=== PATIENT | female | born 1970 | race Caucasian/White ===

== ENCOUNTER 2024-08-30 08:26 | Outpatient (AMB) | payer BC, SELFPAY ==
--- NOTE | 2024-08-30 08:30 | MHC.PC.OV ---
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 Required: No Is last menstrual period known: Yes Last menstrual period: 08/09/24 Post menopausal: No Patient : No Allergies No Known Allergies Allergy (Verified 08/30/24 08:56) Medication List - Last Reconciled 08/30/24 by Sonam Cassidy CNP No Known Home Meds Tobacco use date assessed: 08/30/24 Dental Screening Dental Screen Date: 08/30/24 Did you have a dental visit in the last 12 months?: No Did you have a dental problem in the last 6 months where you did not have access to dental care?: No Was dental information given to patient?: Yes HPI HPI Comments History of Present Illness Details 54-year-old female presents to establish care Prior PCP? - [facility]/Rafat Henning Last office visit/CPE/labs - 2019 Acute issue(s) - Anxiety and Depression. Notes that her symptoms are mild and generally well controlled. Increased anxiety and depressive symptoms usually coincide with her menstrual cycle. She was on psychotropic medications until 4 years ago. She has history of therapist and psychiatrist over 30 years ago; not currently followed by both. She is not interested in starting psychotropic medication at this time. Past Medical History - RA - Anxiety - Depression Surgical History - None Family History - Dad: AUD - Mom: Depression - MGM: Depression Social History - Nonsmoker. Does not vape. Drinks 2-3 beers/wine monthly. Denies recreational drug use - Has been making healthy dietary choices. Walks routinely. Generally sleep well Health maintenance - Last eye exam was about 10 years ago. Referred to Ophthalmology routine eye care - Last dental visit was about 8 years ago; encouraged to schedule an appointment with his dentist for routine dental care. - Last tetanus vaccine was in 2002; received Tdap vaccine today - Has not been vaccinated for the flu this season; declines vaccination - She has never been vaccinated for shingles or pneumonia. Encouraged to get vaccinated for both vaccines. She may get the vaccines from the local pharmacy - Last pap smear test was 5 years ago. Referred to [facility] beater engineer for a pap smear test - She has never had a mammogram. Mammogram ordered - She has never had a colonoscopy. Referred to [facility] gastroenterology for a colonoscopy [facility] Medical History (Updated 08/30/24 @ 09:26 by Sonam Cassidy CNP) Arthritis Depression Anxiety Family History (Updated 08/30/24 @ 08:47 by Pari Josue) Father Alcohol abuse Mother FH: mental illness High blood pressure High cholesterol Thyroid disorder Maternal Grandmother FH: mental illness High blood pressure High cholesterol Thyroid disorder Sister FH: mental illness Maternal Grandfather High cholesterol Cardiovascular disease Paternal Grandfather Alcohol abuse Social History Housing: House Patient Tobacco Use Status: Never used Tobacco e-Cigarette/Vaping Use: Never Used Second Hand Smoke Exposure: Yes service: No Current occupational status: employed 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 1. Little interest or pleasure in doing things: several days 2. Feeling down, depressed, or hopeless: several days 3. Trouble falling or staying asleep, or sleeping too much: not at all 4. Feeling tired or having little energy: not at all 5. Poor appetite or overeating: not at all 6. Feeling bad about yourself - or that you are a failure or have let yourself or your family down: not at all 7. Trouble concentrating on things, such as reading the newspaper or watching television: not at all 8. Moving or speaking so slowly that other people could have noticed. Or the opposite - being so fidgety or restless that you have been moving around a lot more than usual: not at all 9. Thoughts that you would be better off or of hurting yourself in some way: not at all Total score: 2 Depression Screening Interpretation: Negative Depression Screening Done: Yes [id number] - PHQ-9 Billing: Yes Source: Developed by Drs. Chay Sarmiento, Opal Elizondo, Deep Gonzalez and colleagues, with an educational franc from [employer]. Thrive Questionnaire Date Thrive assessed: 08/30/24 I am a: Patient What is your living situation today?: I have a steady place to live Within the past 12 months, did the food you bought not last and you didn't have the money to get more?: Never true Within the past 12 months, did you worry whether your food would run out before you got money to buy more?: Never true Do you have trouble paying for medicines?: No Do you have trouble getting transportation to medical appointments?: No Do you have trouble paying your heating and electricity bill?: No Do you have trouble taking care of your child, family member or friend?: No Do you have trouble with day-to-day activities such as bathing, preparing meals, shopping, managing finances, etc.?: No Are you currently unemployed and looking for a job?: No Are you interested in more education?: I choose not to answer this question Please select the resources that you would like help with: None Currently or been in a relationship where the following occur: No concerns reported THRIVE Score: 0 AUDIT C Alcohol Use Questionnaire (AUDIT-C) 1. How often do you have a drink containing alcohol?: 2-4 times a month 2. How many drinks containing alcohol do you have on a typical day when you are drinking?: 1 or 2 3. How often do you have six or more drinks on one occasion?: Less than monthly Total Score: 3 Score Reviewed/Action Taken: Yes REINA-7 AMB Questionnaire REINA-7 Date REINA - 7 assessed: 08/30/24 Feeling nervous, anxious, or on edge: 3 = Nearly every day Not being able to stop or control worryin = Several days Worrying too much about different things: 2 = More than half the days Trouble relaxin = More than half the days Being so restless that it is hard to sit still: 1 = Several days Becoming easily annoyed or irritable: 3 = Nearly every day Feeling afraid as if something awful might happen: 1 = Several days Total REINA-7 score (0-4 normal; 5-9 mild; 10-14 moderate; 15-21 severe): 13 Source: Developed by Drs. Chay Sarmiento, Deep Lui and colleagues, with an educational franc from [employer]. REINA-7 Assessment Billing REINA-7 Assessment Tool: REINA-7 Assessment 24728 Review of Systems Const Details: Denies chills, Denies fatigue, Denies fever(s), Denies headache(s) and Denies weakness HEENT Denies change in vision, Denies dizziness, Denies headache(s), Denies hearing loss, Denies nasal congestion, Denies sinus pain, Denies sinus pressure and Denies sore throat Card Denies chest pain, Denies lightheadedness, Denies dyspnea and Denies other (palpitations) Resp Denies cough, Denies dyspnea and Denies wheezing GI Denies abdominal pain, Denies melena, Denies hematochezia, Denies change in bowel habits, Denies dyspepsia and Denies nausea Denies hematuria and Denies dysuria Musc Denies abnormal gait, Denies myalgias, Denies arthralgias, Denies numbness and Denies tingling Skin/Breast Denies rash, Denies unusual bruising and Denies wounds Neuro Denies abnormal gait, Denies dizziness, Denies headache(s), Denies memory loss, Denies numbness, Denies Sensory deficit (Neuro), Denies tingling and Denies weakness Psych Denies anxiety, Denies depression and Denies memory loss Endo Denies cold intolerance, Denies fatigue, Denies heat intolerance, Denies polydipsia and Denies polyuria Paulino/Lymph Denies easy bleeding and Denies easy bruising Aller/Immun Denies wheezing Physical exam (Primary Care) Vital Signs: Last Vital Signs Temp 98.1 F 08/30/24 08:38 Pulse 95 08/30/24 08:38 Resp 16 08/30/24 08:38 BP 136/86 08/30/24 09:09 Pulse Ox 98 08/30/24 08:38 Oxygen Delivery Method Room Air 08/30/24 08:38 BMI result Body Mass Index 39.1 Tobacco/Smoking Status: Tobacco use Status Tobacco use date assessed 08/30/24 08/30/24 08:38 Patient Tobacco Use Status Never used Tobacco 08/30/24 08:38 e-Cigarette/Vaping Use Never Used 08/30/24 08:38 PHQ-9: PHQ-9 Score PHQ-9: Total score 2 08/30/24 08:42 Depression Screening Interpretation: Negative Thrive Assessment: Date of Thrive Assessment Date Thrive assessed 08/30/24 08/30/24 08:34 Currently or been in a relationship where the following occur: No concerns reported Const Other: General: no acute distress, well developed, alert and awake Nutritional Appearance: well nourished Orientation/consciousness: patient oriented x3 [facility] Head: Yes normocephalic and Yes atraumatic Ears: hearing grossly normal bilaterally and TM's normal bilaterally General nose exam: Normal external nose present and Normal nares present Mouth: Normal oral and palatal mucosa present and moist mucous membranes Teeth and gingiva: dentition normal Throat: Yes oropharynx normal Eyes Pupils: Equal, round and reactive pupils present and Pupil accommodation reflex normal EOM: EOMs intact bilaterally Neck Neck: Yes normal visual inspection, Yes no lymphadenopathy and Yes trachea midline Thyroid: Thyroid normal Carotids: no bruits Lymphatic: no lymphadenopathy noted Chest Chest palpation & inspection: normal inspection of the chest Resp Effort & Inspection: normal respiratory effort Auscultation: clear to auscultation bilaterally Cardio Rate: regular rate Rhythm: regular rhythm Heart sounds: S1 normal heart sound present, S2 normal heart sound present, no gallops, no murmurs and no rubs Bruits: no abdominal aortic bruits and no carotid bruits GI Palpation (GI): No Abdominal aortic bruit present, Soft to palpation, nontender, No hepatosplenomegaly present and No Rebound tenderness present Auscultation: normal bowel sounds General: Yes no CVA tenderness Back/Spine/Pelvis Back: no CVA tenderness Cervical Spine: cervical ROM normal and No Cervical spine tenderness Thoracic/Lumbar Spine: thoraco-lumbar ROM normal, No pain with thoraco-lumbar ROM, No thoracic spinal tenderness and No lumbar spinal tenderness Skin General: warm and dry. Normal skin color. Normal skin turgor Lesions: no lesions Rashes: no rashes Trauma: no lacerations or abrasions Wounds: no wounds Nails: normal Neuro General: patient oriented x3, gait normal and CN's II-XI intact bilaterally Cranial nerves: Yes Equal, round and reactive pupils present Cognition (Neuro): normal cognition Gait exam (Neuro): Normal gait present Motor exam (neuro): 5/5 motor strength present throughout Sensory Exam: No Sensory deficit (Neuro) Deep tendon reflexes (DTR's): Right patellar reflex intensity grade: 2+ and Left patellar reflex intensity grade: 2+ Extrem General: Yes normal to inspection, No edema and No calf tenderness Psych Appearance: grossly normal Affect: normal affect Attitude: cooperative Thought process: Normal thought process present Immunizations Boostrix Tdap 2.5 Lf unit-8 mcg-5 Lf/0.5 mL intramuscular syringe Performing Provider: Sonam Cassidy CNP Performing Location: [facility] Family Medicine Administered by: Checo Sandhu RN on 08/30/24 09:26 Dose Route Admin Location Dispensed Lot Number Expiration Date [facility] Soap[place]er 0.5 mL IM Left Deltoid 0.5 mL [id number] 04/25/25 [id number] PolyActiva VIS Given Date VIS Provided VIS Publication Date 08/30/24 Single Vaccine 21 Eligibility Eligibility Date Funding Source Not [facility] Eligible 08/30/24 Private Coding Level of Care Code New Pt Prev Care 40-64y(52032) Diagnoses Normal physical examination, routine Z00.00 Anxiety and depression F41.9; F32.A Eye exam, routine Z01.00 Breast cancer screening by mammogram Z12.31 Pap smear for cervical cancer screening Z12.4 Colon cancer screening Z12.11 Vaccine for tetanus toxoid Z23 Vaccine counseling Z71.85 Obesity (BMI 30-39.9) E66.9 Laboratory tests ordered as part of a complete physical exam (CPE) Z00.00 Additional Codes REINA-7 Assessment Billing - REINA-7 Assessment Tool: REINA-7 Assessment 10003 ([id number]) PHQ-9 - 90259 - PHQ-9 Billing: Yes ([id number]) Assessment & Plan Assessment & Plan (1) Normal physical examination, routine: Code(s): Z00.00 - Encounter for general adult medical examination without abnormal findings Category: Medical Plan: No significant functional limitations noted. Advised to get blood work done 2-3 days before next visit. Follow-up for telehealth visit in 2-3 weeks for labs review or sooner with symptoms or concerns. Verbalized understanding and agreed with treatment plan. (2) Anxiety and depression: Code(s): F41.9 - Anxiety disorder, unspecified; F32.A - Depression, unspecified Category: Medical Plan: Her anxiety and depressive symptoms are generally mild and well controlled. She was on psychotropic medications until 4 years ago. However, she is not interested in psychotropic medication at this time. PHQ-9 score is normal. REINA-7 score revealed moderate anxiety. Routine exercise encouraged. Follow-up with worsening or new symptoms. Verbalized understanding and agreed with treatment plan. (3) Eye exam, routine: Code(s): Z01.00 - Encounter for examination of eyes and vision without abnormal findings Category: Medical Plan: Last eye exam was about 10 years ago. Referred to Ophthalmology routine eye care. (4) Breast cancer screening by mammogram: Code(s): Z12.31 - Encounter for screening mammogram for malignant neoplasm of breast Category: Medical Plan: She has never had a mammogram. Mammogram ordered. (5) Pap smear for cervical cancer screening: Code(s): Z12.4 - Encounter for screening for malignant neoplasm of cervix Category: Medical Plan: Last pap smear test was 5 years ago. Referred to [facility] beater engineer for a pap smear test. (6) Colon cancer screening: Code(s): Z12.11 - Encounter for screening for malignant neoplasm of colon Category: Medical Plan: She has never had a colonoscopy. Referred to [facility] gastroenterology for a colonoscopy. (7) Vaccine for tetanus toxoid: Code(s): Z23 - Encounter for immunization Category: Medical Plan: Last tetanus vaccine was in 2002. Tetanus vaccine administered in the office today. (8) Vaccine counseling: Code(s): Z71.85 - Encounter for immunization safety counseling Category: Medical Plan: She has never been vaccinated for shingles or pneumonia. Instructed on importance of shingles and pneumonia vaccines and encouraged to get vaccinated for both. She may get the vaccines from the local pharmacy. Verbalized understanding and agreed with the treatment plan. (9) Obesity (BMI 30-39.9): Code(s): E66.9 - Obesity, unspecified Category: Medical Plan: She currently weighs 214 lb, BMI is 39.1. She has been making healthy dietary choices and walking routinely. Declines referral to health actuary/dietitian or weight management clinic and notes that she will continue with lifestyle changes and notify PCP as needed for referral. Healthy diet and routine exercise encouraged. Follow-up as needed. Verbalized understanding and agreed with treatment plan. (10) Laboratory tests ordered as part of a complete physical exam (CPE): Code(s): Z00.00 - Encounter for general adult medical examination without abnormal findings Category: Medical Plan: Fasting labs ordered as part of a complete physical exam. Advised to fast for at least 10 hours before getting labs drawn. May drink water Verbalized understanding and agreed with treatment plan. Orders: Orders Comprehensive [place]. Panel Fast Today Z00.00 - Encounter for general adult medical examination without abnormal findings UA CC w/rflx Micro + Cult Today Z00.00 - Encounter for general adult medical examination without abnormal findings Vitamin D 25-OH Total Today Z00.00 - Encounter for general adult medical examination without abnormal findings MM screening mammo BI Today Z12.31 - Encounter for screening mammogram for malignant neoplasm of breast Complete Blood Count Auto Diff Today Z00.00 - Encounter for general adult medical examination without abnormal findings Lipid Panel Today Z00.00 - Encounter for general adult medical examination without abnormal findings TSH reflex Free T4 Today Z00.00 - Encounter for general adult medical examination without abnormal findings Microalbumin, Random (w Creat) Today Z00.00 - Encounter for general adult medical examination without abnormal findings TDaP Immunization Today Z23 - Encounter for immunization Referrals TROUBLE CLERK Referral Z12.4 - Encounter for screening for malignant neoplasm of cervix Gastroenterology Referral Z12.11 - Encounter for screening for malignant neoplasm of colon Ophthalmology Referral Z01.00 - Encounter for examination of eyes and vision without abnormal findings
[2024-08-30 08:38] VITALS: BP 140/84; PULSE 95; RESP 16; TEMP 36.7; O2SAT 98; BMI 39.1
[2024-08-30 09:09] VITALS: BP 136/86; PULSE 96
== END 2024-08-30 09:30 | disposition home or self-care (01) ==
PROVIDERS: PCP Nurse Practitioner Family; Visit Provider Nurse Practitioner Family
DX: Z00.00 Encounter for general adult medical examination without abnormal findings (principal); F41.9 Anxiety disorder, unspecified; E66.9 Obesity, unspecified; Z68.39 Body mass index [BMI] 39.0-39.9, adult; Z12.31 Encounter for screening mammogram for malignant neoplasm of breast; F32.A Depression, unspecified; Z12.11 Encounter for screening for malignant neoplasm of colon; Z23 Encounter for immunization; Z71.85 Encounter for immunization safety counseling

== ENCOUNTER → 2024-08-30 08:26 | Outpatient (BNVA) | payer BC, SELFPAY | PROVIDERS: PCP Nurse Practitioner Family; Visit Provider Nurse Practitioner Family | DX: Z00.00 Encounter for general adult medical examination without abnormal findings (principal); Z23 Encounter for immunization; F41.9 Anxiety disorder, unspecified; F32.A Depression, unspecified; E66.9 Obesity, unspecified; Z68.39 Body mass index [BMI] 39.0-39.9, adult; Z71.85 Encounter for immunization safety counseling | CPT/HCPCS: 90471; 90715; 96127 ==

== ENCOUNTER 2024-09-13 07:59 | Outpatient (REF) | payer BC, SELFPAY ==
[2024-09-13 11:20] LABS: MANUAL DIFF FLAG NO
[2024-09-13 11:27] LABS: Basophils Percent Auto 0.5 % (0-2); Eosinophils Absolute Auto 0.1 X10*3/uL (0.0-0.4); Eosinophils Percent Auto 0.9 % (0-4); Hematocrit 44.8 % (37.0-47.0); Hemoglobin 14.8 g/dl (12.0-16.0); Imm Gran Abs Auto 0.03 X10*3/uL (0.00-0.03); Imm Gran Pct Auto 0.4 % (0.0-0.4); Lymphocytes Absolute Auto 1.8 X10*3/uL (1.2-4.9); Lymphocytes Percent Auto 23.6 % (20-40); Mean Corpuscular Hemoglobin 29.8 pg (27.0-33.0); Mean Corpuscular Volume 90.1 fL (80.0-98.0); Mean Platelet Volume 9.8 fL (9.4-12.3); Monocytes Absolute Auto 0.5 X10*3/uL (0.1-1.2); Monocytes Percent Auto 6.4 % (2-11); Neutrophils Absolute Auto 5.1 x10*3/uL (2.0-8.3); Neutrophils Percent Auto 68.2 % (45-73); Platelet Count 267 X10*3/uL (160-400); Red Blood Count 4.97 X10*6/uL (4.20-5.50); Red Cell Distribution Width 13.5 % (11.0-16.0); White Blood Count 7.5 X10*3/uL (4.8-10.8)
[2024-09-13 11:48] LABS: Alanine Aminotransferase 20 U/L (0-31); Albumin Level 4.2 g/dL (3.5-5.0); Alkaline Phosphatase 65 U/L (39-117); Anion Gap 12 (12-20); Aspartate Amino Transferase 19 U/L (5-31); Bilirubin Total 0.6 mg/dL (0.0-1.0); Blood Urea Nitrogen 13 mg/dL (9-16); Calcium 9.4 mg/dL (8.4-10.2); Carbon Dioxide 24 mmol/L (22-29); Chloride 109 mmol/L (96-108); Cholesterol 179 mg/dL (<200); Estimated Glomerular Filt Rate > 60; Glucose Fasting 102 mg/dL (60-99); HDL Cholesterol 48 mg/dL (>40); LDL Cholesterol Calculated 112 mg/dL (<100); Potassium 3.9 mmol/L (3.3-5.1); Sodium 141 mmol/L (135-145); Total Protein 7.3 g/dL (6.5-8.0); Triglycerides 99 mg/dL (<150)
[2024-09-13 12:07] LABS: TSH reflex Free T4 1.91 uIU/mL (0.32-4.0); Vitamin D 25-OH Total 44.4 ng/mL (>30)
[2024-09-13 15:18] LABS: Appearance Urine Turbid; Color Urine Yellow; Glucose Urine UA Negative (Negative); Leukocyte Esterase Urine Small (1+) (Negative); Nitrite Urine Negative (Negative); PH 5.5 (5.0-9.0); UMIC TRIGGER UACC YES; Urine Blood Large (3+) (Negative); Urine Ketones Negative (Negative); Urine Protein Negative (Neg-Trace)
[2024-09-13 15:46] LABS: Bacteria Urine 1+ (None Seen); Creatinine Urine 199.34 mg/dL; Microalbum/Creatinine Ratio Ur 9.5 ug/mg cr (<30); UACC Culture Trigger YES; WBC Urine 0-5 /HPF (0-5)
== END 2024-09-13 08:00 | disposition home or self-care (01) ==
LOC: HO.WFDLDS 07:59
PROVIDERS: Visit Provider Nurse Practitioner Family
DX: Z00.00 Encounter for general adult medical examination without abnormal findings (principal); R82.90 Unspecified abnormal findings in urine
CPT/HCPCS: 36415; 80053; 80061; 81001; 82043; 82306; 82570; 84443; 85025; 87086

== ENCOUNTER → 2024-09-20 16:07 | Outpatient (AMB) | payer BC, SELFPAY ==
--- NOTE | 2024-09-20 16:04 | A.OFFPC_ITS ---
Intake Visit Reasons: Telehealth 2-3 wks labs review Intake Note: patient here for telehealth follow up for lab review Overweaver Required: No Is last menstrual period known: Yes Last menstrual period: 09/13/24 Post menopausal: No Patient : No Allergies No Known Allergies Allergy (Verified 09/20/24 16:05) Tobacco use date assessed: 09/20/24 Dental Screening Dental Screen Date: 09/20/24 Did you have a dental visit in the last 12 months?: No Did you have a dental problem in the last 6 months where you did not have access to dental care?: No Was dental information given to patient?: No HPI HPI Comments History of Present Illness Details 54-year-old female presents for [facility] visit for a review of recent lab results. She offers no complaints and denies acute symptoms at this time. COUNTS INCLUDE 234 BEDS AT THE [facility] Medical History (Updated 09/20/24 @ 16:32 by Sonam Cassidy CNP) Arthritis Depression Anxiety Family History (Updated 08/30/24 @ 08:47 by Pari Josue MA) Father Alcohol abuse Mother FH: mental illness High blood pressure High cholesterol Thyroid disorder Maternal Grandmother FH: mental illness High blood pressure High cholesterol Thyroid disorder Sister FH: mental illness Maternal Grandfather High cholesterol Cardiovascular disease Paternal Grandfather Alcohol abuse Social History Housing: House Patient Tobacco Use Status: Never used Tobacco e-Cigarette/Vaping Use: Never Used Second Hand Smoke Exposure: Yes Patient : No service: No Current occupational status: employed 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 Chay Sarmiento, Opal Elizondo, Deep Gonzalez and colleagues, with an educational franc from [employer]. Review of Systems Const Details: Denies chills, Denies fatigue, Denies fever(s), Denies headache(s) and Denies weakness Cardiac Denies chest pain, Denies claudication, Denies leg edema, Denies lightheadedness, Denies palpitations, Denies dyspnea, Denies dyspnea on exertion, Denies orthopnea and Denies other (Loss of consciousness) Resp Denies cough, Denies excessive phlegm production, Denies dyspnea, Denies dyspnea on exertion, Denies snoring and Denies wheezing Physical exam (Primary Care) Tobacco/Smoking Status: Tobacco use Status Tobacco use date assessed 09/20/24 09/20/24 16:06 Patient Tobacco Use Status Never used Tobacco 09/20/24 16:06 e-Cigarette/Vaping Use Never Used 09/20/24 16:06 Thrive Assessment: Date of Thrive Assessment Date Thrive assessed 08/30/24 09/20/24 16:06 Const Other: Patient is alert and oriented x3. Telehealth Telehealth Telehealth Platform: Telephone Location of provider rendering services: practice address Location of patient: address on file Patient Identification confirmed using: Name, : Yes Telehealth method: voice only Patient verbally consented to treatment: Yes Patient verbally consented to billing insurance company: Yes Patient informed of any privacy concerns related to visit: Yes Coding Level of Care Code Tele New Pt Level 3 (40243) Diagnoses Elevated LDL cholesterol level E78.00 Elevated fasting glucose R73.01 Time Spent (min) 10 Assessment & Plan Assessment & Plan (1) Elevated LDL cholesterol level: Code(s): E78.00 - Pure hypercholesterolemia, unspecified Category: Medical Plan: Recent LDL level is slightly elevated, 112. Advised to limit foods high in saturated fat and avoid foods high in trans fat. Routine exercise encouraged. Fast for 10-12 hours, may drink water, and perform lipid panel blood work done 2-3 days before next visit. Follow-up for telehealth visit in 3 months. Return sooner with symptoms or concerns. Verbalized understanding and agreed with treatment plan. (2) Elevated fasting glucose: Code(s): R73.01 - Impaired fasting glucose Category: Medical Plan: Fasting glucose is slightly elevated, 102. Will recheck fasting glucose and make changes as needed. Verbalized understanding and agreed with the plan. Orders: Orders Glucose Fasting Today R73.01 - Impaired fasting glucose Lipid Panel 3 Months E78.00 - Pure hypercholesterolemia, unspecified
== END ==
LOC: HO.HMCFM 16:07
PROVIDERS: PCP Nurse Practitioner Family; Visit Provider Nurse Practitioner Family
DX: E78.00 Pure hypercholesterolemia, unspecified (principal); R73.01 Impaired fasting glucose

== ENCOUNTER → 2024-09-20 16:07 | Outpatient (BNVA) | payer BC, SELFPAY | PROVIDERS: PCP Nurse Practitioner Family; Visit Provider Nurse Practitioner Family ==

== ENCOUNTER 2024-10-01 08:42 | Outpatient (REF) | payer BC, SELFPAY | END 2024-10-01 08:43 | disposition home or self-care (01) | LOC: HO.MAMMO 08:42 | PROVIDERS: PCP Nurse Practitioner Family; Visit Provider Nurse Practitioner Family | DX: Z12.31 Encounter for screening mammogram for malignant neoplasm of breast (principal) | CPT/HCPCS: 77063; 77067 ==

== ENCOUNTER → 2024-10-01 09:00 | Outpatient (BNV) | payer BC, SELFPAY | PROVIDERS: PCP Nurse Practitioner Family; Visit Provider Internal Medicine | DX: Z12.31 Encounter for screening mammogram for malignant neoplasm of breast (principal) | CPT/HCPCS: 77063; 77067 ==

== ENCOUNTER 2025-06-20 09:15 | Outpatient (AMB) | payer BC, SELFPAY ==
[2025-06-20 09:19] VITALS: BP 134/86; BMI 39.0
--- NOTE | 2025-06-20 09:19 | MHC.OFFVIS ---
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 She has not had a insert operator appointment and a very long time she is to go to some practice in [place] she has 1 child born in 1994 at [facility] . She has history of normal regular periods and she is still getting them they come every month and last about 5-7 days. She was getting some hot flashes at night but they seem to have subsided she is not really having any issues with vaginal dryness or anything else she is but has not had sex in about a year when she was more sexually active she would use condoms and she would in the future if necessary. She recently had 1st mammogram in a while in September and it was normal and she said up for the next 1 this coming September. She had establish care with a primary care provider but he has now left so she will be looking for another primary provider. She works for [employer] and her office workers and her go for a walk at lunch time every day for about a mi and a half and she tries to eat well and be active otherwise. [facility] Medical History Arthritis Depression Anxiety Family History Father Alcohol abuse Mother FH: mental illness High blood pressure High cholesterol Thyroid disorder Maternal Grandmother FH: mental illness High blood pressure High cholesterol Thyroid disorder Sister FH: mental illness Maternal Grandfather High cholesterol Cardiovascular disease Paternal Grandfather Alcohol abuse Social History Housing: House Patient Tobacco Use Status: Never used Tobacco e-Cigarette/Vaping Use: Never Used Second Hand Smoke Exposure: Yes service: No Current occupational status: employed 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 Current occupational exposures/hazards: No Cognitive needs: No Hearing needs: No Vision needs: Yes Female Reproductive History Menstrual Duration of menses: 6-7 days Date of last menstrual period: 06/11/25 control method: none Total pregnancies: 1 Number of Living Children: 1 Date of Mammogram: 10/01/24 Physical Exam Vital Signs: Last Vital Signs BP 134/86 06/20/25 09:19 BMI result Body Mass Index 39.0 Const General: healthy appearing, comfortable, no acute distress, well developed and alert Nutritional Appearance: average body habitus Orientation/consciousness: patient oriented x3 Limitations: no limitations HEENT Head: Yes normocephalic Neck Neck: Yes normal visual inspection Thyroid: Thyroid normal Chest Chest palpation & inspection: normal inspection of the chest Breast/axilla inspection: normal inspection of the breasts and normal inspection of the axillae Breast/axilla palpation: normal palpation of the breasts and normal palpation of the axillae Resp Effort & Inspection: normal respiratory effort GI Inspection: Yes normal to inspection, No Abdominal wall edema and No distended Palpation (GI): Soft to palpation and nontender Other: External exam within normal limits vagina is pink and moist cervix is slightly reddened very slightly friable with Pap scraper. Cervix multiparous long close thick mobile nontender midposition uterus is midposition not enlarged adnexa nonenlarged and nontender. Fair tone with Kegel encouraged to do tightening exercises periodically. General: Yes bladder normal to palpation External Female Exam: normal external appearance and normal appearance of the urethra Speculum Exam - Vagina: normal appearance of the vagina, normal palpation and normal vaginal discharge Speculum Exam - Cervix: normal appearance of the cervix, normal palpation and nontender Bimanual exam- vagina & uterus: normal bimanual exam, normal palpation, uterine size normal, bladder normal to palpation, consistency normal, normal palpation, uterine mobility normal, uterine shape normal, No Cervical tenderness present, non-tender and no cervical motion tenderness Bimanual Exam- Adnexa, other: normal adnexae, no masses, normal and No adnexal tenderness Neuro General: patient oriented x3 Assessment & Plan Assessment & Plan (1) Breast cancer screening by mammogram: Code(s): Z12.31 - Encounter for screening mammogram for malignant neoplasm of breast Category: Medical (2) Pap smear for cervical cancer screening: Code(s): Z12.4 - Encounter for screening for malignant neoplasm of cervix Category: Medical (3) Obesity (BMI 30-39.9): Code(s): E66.9 - Obesity, unspecified Category: Medical (4) Perimenopause: Code(s): N95.1 - Menopausal and female climacteric states Category: Medical Plan -----Discussed in this visit the following: healthy balanced diet, regular and consistent exercise, getting recommended health screens, doing the best she can for her particular health concerns, kegel exercises, pap smear screening and followup recommendations, mammography screening and SBE, normal changes in cycles in her life stage--- . Discussed her efforts to be as healthy as she can and she is trying to refocus her energies on self-care and her health and we will be looking for a new primary. She acknowledges that she was told her cholesterol was a little bit elevated in 1 number and another number was good and her fasting glucose was a little bit elevated so she is working on all of that. She is not having any menopausal concerns that are problematic at this stage she is not really seeking any medical management for any issues in that area. Continue her excellent efforts and RTC 1 year. Pap smear was done she declined any other testing is not necessary. Orders: Orders Pap Smear Today Z01.419 - Encounter for gynecological examination (general) (routine) without abnormal findings Coding Level of Care Code New Pt Prev Care 40-64y(40807) Diagnoses Breast cancer screening by mammogram Z12.31 Pap smear for cervical cancer screening Z12.4 Obesity (BMI 30-39.9) E66.9 Perimenopause N95.1
--- OUTSIDE RECORDS SUMMARY | 2025-06-20 09:56 | XMS_ITS | Clinical Summary ---
Author Organization [facility] Address [address] [place] [phone] Phone Care Team Providers Care Surveying Crew Rodman Name Role Phone Pcp, Unknown Primary Care Provider Unavailabl e Allergies No known active allergies Medications multivitamins capsuleIndication s:one a day womens as directed Orally Indications: one a day womens Active HYDROcodone-aceta minophen (NORCO) 5-325 mg per tabletIndications :Acute left-sided low back pain with left-sided sciatica Take 1 tablet by mouth every 6 (six) hours as needed for pain (specific location in comments). Partial fill ok 20 tablet 0 Active diclofenac sodium (VOLTAREN) 75 MG EC tabletIndications :Greater trochanteric bursitis of left hip TAKE 1 TABLET (75 MG TOTAL) BY MOUTH 2 (TWO) TIMES A DAY FOR 28 DAYS. 56 tablet 0 Active citalopram (CELEXA) 10 MG tabletIndications :Anxiety and depression Take 1 tablet (10 mg total) by mouth daily. 90 tablet 0 Active Active Problems Problem Noted Date Diagnosed Date Anxiety and depression 07/29/2018 Overview (07/29/2018): Start citalopram 10mg daily. Will look into therapist. Allergic rhinitis 04/06/2018 Depression 04/06/2018 Obesity 04/06/2018 Immunizations Immunization Administration Dates Next Due COVID-19 (Pre-04/20) Pfizer Vaccine, mRNA, PF Hepatitis B 07/16/2004 Influenza Quadrivalent w/ Preservative IM 2017 Influenza Recombinant Quadrivalent Preservative Free IM 04/27/2018 Td, unspecified formulation 01/11/2003 Tdap 08/19/2011 Family History Medical History Relation Comments Hypertension Father Heart attack Maternal Grandfather Palpitations Mother Hyperlipidemia Sister Relation Status Comments Father Alive Maternal Grandfather Mother Alive Paternal Grandfather Sister Alive Social History Tobacco Use Types Packs/Day Years Used Date Smoking Tobacco: Never Smokeless Tobacco: Never Alcohol Use Standard Drinks/Week Comments Not Asked 1 (1 standard drink = 0.6 oz pur e alcohol) Education Answer Date Recorded Are you interested in more education? Not on brody e 10/24/2022 Are you concerned about learning? Not on file 10/24/2022 No 10/24/2022 No 10/24/2022 Digital Access Answer Date Recorded No 11/24/2022 No 11/24/2022 Reliable internet access at home? Not on file 11/24/2022 Device with a working camera? 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 Not on file Not on file Not on file Last Filed Vital Signs Vital Sign Reading Time Taken Comments Blood Pressure 122/62 12/14/2019 9:49 AM EDT Pulse 108 12/14/2019 9:49 AM EDT Temperature 36.7 C (98 F) 12/14/2019 9:49 AM EDT Respiratory Rate - - Oxygen Saturation 98% 12/14/2019 9:49 AM EDT Inhaled Oxygen Concentration - - Weight 88.1 kg (194 lb 3.2 oz) 12/14/2019 9:49 A M EDT Height 160 cm (5' 2.99 ) 12/14/2019 9:49 AM EDT Body Mass Index 34.41 12/14/2019 9:49 AM EDT Plan of Treatment Health Maintenance Due Date Last Done Comments LIPID PANEL 1972 DEPRESSION SCREENING 1984 HEPATITIS C SCREENING 1990 HIV ONE-TIME SCREENING (18-6 5 YEARS) 1990 MAMMOGRAM 2012 PAP SMEAR 08/26/2014 08/27/2011 COLOGUARD 2017 COLONOSCOPY 2017 COLORECTAL CANCER SCREENING 2017 FIT TEST 2017 FOBT 2017 SIGMOIDOSCOPY 2017 VIRTUAL COLONOSCOPY 2017 Adult Td,Tdap Booster 08/19/2021 08/19/2011 , 01/11/2003 PNEUMOCOCCAL VACCINES (50+ years) (1 of 1 - PCV) 2022 ZOSTER VACCINES (1 of 2) 2022 INFLUENZA VACCINE (#1) 2025 8, 08/11/2017 COVID-19 VACCINE (2 - 2024-2 6 season) 2025 09/22/2020 RSV VACCINE (1 - 1-dose 75+ series) 2047 SMOKING STATUS SCREENING (On ce After 26 Yrs) Completed 11/23/2019 HEPATITIS A VACCINES Aged Out No long er eligible based on patient's age to complete this topic HIB VACCINES Aged Out No longer eligi ble based on patient's age to complete this topic MENINGOCOCCAL VACCINES (ACWY) Aged Out No longer eligible based on patient's age to complete this topic MENINGOCOCCAL VACCINES (B) Aged Out N o longer eligible based on patient's age to complete this topic Medical Devices Not on file Insurance AETNA PPO AETNA PPO T PPO T PPO AET PPO AETNA PPO AETNA PPO AETNA PPO Care Teams Surveying Crew Rodman Relationship Specialty Start Date End Date Pcp, Unknown PCP - General 06/08/23 Additional Source Comments The information contained in this document represents components of the legal health record. It is not the complete legal health record.[facility]
== END 2025-06-20 10:29 | disposition home or self-care (01) ==
LOC: HO.HWSM 09:15
PROVIDERS: PCP Nurse Practitioner Family; Visit Provider Advanced Practice Midwife
DX: Z01.419 Encounter for gynecological examination (general) (routine) without abnormal findings (principal); Z12.31 Encounter for screening mammogram for malignant neoplasm of breast; E66.9 Obesity, unspecified; N95.1 Menopausal and female climacteric states
CPT/HCPCS: 99386; 99459

== ENCOUNTER 2025-06-20 09:15 | Outpatient (REF) | payer BC, SELFPAY | END 2025-06-20 09:16 | disposition home or self-care (01) | LOC: HO.LNP 09:15 | PROVIDERS: PCP Nurse Practitioner Family; Visit Provider Advanced Practice Midwife | DX: Z01.419 Encounter for gynecological examination (general) (routine) without abnormal findings (principal); E66.9 Obesity, unspecified; N95.1 Menopausal and female climacteric states; Z68.39 Body mass index [BMI] 39.0-39.9, adult | CPT/HCPCS: 87626; 88175 ==